=== PATIENT | female | born 1965 | race Caucasian/White ===

== ENCOUNTER 2023-04-05 13:52 | Outpatient (CLI) | payer MEDICARE | END 2023-04-05 13:53 | disposition home or self-care (01) | LOC: CSHMRI 13:52 | PROVIDERS: ATTEND Neurological Surgery | DX: M51.26 Other intervertebral disc displacement, lumbar region (principal); M47.26 Other spondylosis with radiculopathy, lumbar region; M48.061 Spinal stenosis, lumbar region without neurogenic claudication | CPT/HCPCS: 72148 ==

== ENCOUNTER 2024-09-08 14:26 | Outpatient (CLI) | payer MEDICARE | END 2024-09-08 14:27 | disposition home or self-care (01) | LOC: CSHMRI 14:26 | PROVIDERS: ATTEND Family Medicine | DX: R40.4 Transient alteration of awareness (principal); F44.89 Other dissociative and conversion disorders; R68.89 Other general symptoms and signs; R47.89 Other speech disturbances | CPT/HCPCS: 70551 ==